=== PATIENT | female | born 1975 | race Caucasian/White ===

== ENCOUNTER 2018-05-28 10:23 | Emergency (ER) | payer BC, MEDICAID ==
--- NOTE | 2018-05-28 13:39 | ED PDOC ---
Arrival/HPI - General Chief Complaint: Lower Extremity Problem/Injury Time Seen by Provider: 05/28/18 10:29 Historian: Patient - History of Present Illness Narrative History of Present Illness (Text): 05/28/18 21:35 42 y/o female with no significant PMH presents to the ED c/o bilateral heel and knee pain x 3 months. Pt states she has had this pain for many years but it has worsened over the last few months. Pain starts in her heels and radiates up her legs, worst with standing for long periods of time. Also c/o associated intermittent numbness to her fingertips bilaterally for the last 6 months. History of surgical fixation of right ankle approx 6 years ago with an unknown surgeon. Has not taken any medication for the pain. Denies injury, fevers, chills, weakness, headache, dizziness, nausea, vomiting, abdominal pain, back pain, saddle anesthesia, bowel/bladder incontinence, or any other associated symptoms. Past Medical History - Cardiac Hx Cardiac Disorders: No - Pulmonary Hx Respiratory Disorders: No - Neurological Hx Neurological Disorder: Yes Other/Comment: PAIN TO FEET, ARMS - HEENT Hx HEENT Disorder: No - Renal Hx Renal Disorder: No - Endocrine/Metabolic Hx Endocrine Disorders: No - Hematological/Oncological Hx Blood Disorders: No - Integumentary Hx Dermatological Disorder: No - Musculoskeletal/Rheumatological Hx Musculoskeletal Disorders: Yes Hx Fractures: Yes - Gastrointestinal Hx Gastrointestinal Disorders: No - Genitourinary/Gynecological Hx Genitourinary Disorders: No - Psychiatric Hx Psychophysiologic Disorder: Yes Hx Depression: Yes Hx Substance Use: No - Surgical History Hx Orthopedic Surgery: Yes - Suicidal Assessment Feels Threatened In Home Enviroment: No Family/Social History - Physician Review Nursing Documentation Reviewed: Yes Family/Social History: No Known Family HX Smoking Status: Heavy Smoker > 10 Cigarettes Daily Hx Alcohol Use: No Hx Substance Use: No Hx Substance Use Treatment: No Allergies/Home Meds Allergies/Adverse Reactions: Allergies No Known Allergies Allergy (Verified 05/28/18 10:54) Review of Systems - Review of Systems Constitutional: Normal. absent: Fatigue, Fevers Eyes: Normal. absent: Vision Changes ENT: Normal. absent: Sore Throat, Sinus Congestion Respiratory: Normal. absent: SOB, Cough Cardiovascular: Normal. absent: Chest Pain Gastrointestinal: Normal. absent: Abdominal Pain, Nausea, Vomiting Genitourinary Female: Normal. absent: Dysuria, Frequency, Vaginal Bleeding, Vaginal Discharge Musculoskeletal: Arthralgias. absent: Back Pain, Neck Pain Skin: Normal. absent: Rash Neurological: Normal. absent: Headache, Dizziness Endocrine: Normal Hemo/Lymphatic: Normal Psychiatric: Normal Physical Exam Vital Signs Reviewed: Yes Vital Signs Temp Pulse Resp BP Pulse Ox 05/28/18 10:54 98.8 F 76 16 122/83 96 Temperature: Afebrile Blood Pressure: Normal Pulse: Regular Respiratory Rate: Normal Appearance: Positive for: Well-Appearing, Non-Toxic, Comfortable Pain Distress: None Mental Status: Positive for: Alert and Oriented X 3 Finger Stick Blood Glucose: 92 - Systems Exam Head: Present: Atraumatic, Normocephalic Pupils: Present: PERRL Extroacular Muscles: Present: EOMI Conjunctiva: Present: Normal Mouth: Present: Moist Mucous Membranes Neck: Present: Normal Range of Motion. No: Meningeal Signs, MIDLINE TENDERNESS, Paraspinal Tenderness Respiratory/Chest: Present: Clear to Auscultation, Good Air Exchange. No: Respiratory Distress, Accessory Muscle Use Cardiovascular: Present: Regular Rate and Rhythm, Normal S1, S2, Peripheal Pulses Present Abdomen: No: Tenderness, Distention, Peritoneal Signs, Rebound, Guarding Back: Present: Normal Inspection. No: CVA Tenderness, Midline Tenderness, Paraspinal Tenderness Upper Extremity: Present: Normal Inspection, Normal ROM, NORMAL PULSES, Neurovascularly Intact, Capillary Refill < 2s. No: Cyanosis, Edema, Swelling, Temperature Abnormalties, Deformity Lower Extremity: Present: Normal Inspection, NORMAL PULSES, Normal ROM, Tenderness (over bilateral heels), Neurovascularly Intact, Capillary Refill < 2 s. No: Edema, Swelling, Deformity, Temperature Abnormalties Neurological: Present: GCS=15, CN II-XII Intact, Speech Normal Skin: Present: Warm, Dry, Normal Color. No: Rashes Psychiatric: Present: Alert, Oriented x 3, Normal Insight, Normal Concentration Medical Decision Making ED Course and Treatment: Initial Plan: * Toradol * Heel Xrays * Knee Xrays * Venous Duplex * Fingerstick 05/28/18 13:39 Prelim duplex read negative for DVT Xrays negative for degenerative disease, fracture, or dislocation Fingerstick wnl Patient reports improved pain with medication Advised PMD and orthopedic followup. Given prescription for pain. Diagnostic testing results and plan of care discussed with patient. Strict instructions given regarding prescription use, importance of followup, and signs/symptoms to return to ER including weakness, chest pain, SOB, or any other new/worsening symptoms. Pt verbalized understanding of discussion. Patient is A&Ox3, ambulating with steady gait, with vital signs stable for discharge. - RAD Interpretation Narrative RAD Interpretations (Text): 05/28/18 21:32 Bilateral Heel XR: FINDINGS: No heel spur is identified. Orthopedic hardware incompletely visualized right ankle. IMPRESSION: No significant or acute findings to account for/ related to the clinical presentation. Bilateral Knee XR: FINDINGS: BONES: Right Knee: Normal. No fracture. Left Knee: Normal. No fracture. JOINTS: Right Knee: Normal. No osteoarthritis. Left knee: Normal. No osteoarthritis. SOFT TISSUES: Right Knee: Normal. Left Knee: Normal. JOINT EFFUSION: Right Knee: None. Left Knee: None. OTHER FINDINGS: None. IMPRESSION: No evidence of acute displaced fracture nor dislocation. No significant degenerative osteoarthritis. Radiology Orders: 05/28/18 11:42 HEEL 2 VIEW BI [RAD] Stat KNEES BILATERAL [RAD] Stat DUPLEX LOWER EXTRM VEIN BILAT [US] Stat Emblem Maker: Radiologist - Medication Orders Current Medication Orders: Discontinued Medications Ketorolac Tromethamine (Toradol) 60 mg IM STAT STA Stop: 05/28/18 11:42 Last Admin: 05/28/18 12:01 Dose: 60 mg MAR Pain Assessment Document 05/28/18 12:01 [facility] (Rec: 05/28/18 12:03 [id number] Pain Reassessment Is this a pain reassessment? No Sleep Is patient sleeping during reassessment? No Presence of Pain Presence of Pain Yes Pain Scale Used Protocol: PSCALES Pain Scale Used Numeric Location Left, Right or Bilateral Bilateral Pain Location Body Site Hip Leg Foot Description Description Constant Intensity of Pain at present 9 Pain Behavior Irritability Facial Grimacing Aggravating Factors ADL's Changing Position Standing Walking IM Administration Charges Document 05/28/18 12:01 [facility] (Rec: 05/28/18 12:03 [id number] Injection Site MAR Injection Site Left Arm Charges for Administration # of IM Administrations 1 Disposition/Present on Arrival - Present on Arrival Any Indicators Present on Arrival: No History of DVT/PE: No History of Uncontrolled Diabetes: No Urinary Catheter: No History of Decub. Ulcer: No History Surgical Site Infection Following: None - Disposition Have Diagnosis and Disposition been Completed?: Yes Diagnosis: Chronic leg pain, Paresthesia Disposition: HOME/ ROUTINE Disposition Time: 14:30 Patient Plan: Discharge Condition: STABLE Discharge Instructions (ExitCare): Heel Pain (Caused by Plantar Fasciitis) (DC), Chronic Knee Pain (DC) Additional Instructions: Ibuprofen every 8 hours as needed for pain Followup with orthopedic doctor within 2 days Followup with primary doctor or clinic within 2 days Return to ER with any new/worsening symptoms Prescriptions: Ibuprofen [Motrin Tab] 600 mg PO Q8H PRN #30 tab PRN Reason: Pain, Moderate (4-7) [place] [facility] [place] [facility] [place] - Follow up with primary [facility] [place] [Outside] - Follow up with primary Montana Perez MD [Staff Provider] - Follow up with primary Najma Viera MD [Medical Doctor] - Follow up with primary Forms: [facility] (Albanian), WORK NOTE
[2018-05-28 14:14] VITALS: BP 120/76; PULSE 89; RESP 18; TEMP 98.2; O2SAT 99
--- NOTE | 2018-05-28 15:13 | RAD ---
Date of service: 05/28/2018 PROCEDURE: Bilateral Knee Radiographs. HISTORY: Bilateral knee pain, evaluate for degenerative change COMPARISON: None. FINDINGS: BONES: Right Knee: Normal. No fracture. Left Knee: Normal. No fracture. JOINTS: Right Knee: Normal. No osteoarthritis. Left knee: Normal. No osteoarthritis. SOFT TISSUES: Right Knee: Normal. Left Knee: Normal. JOINT EFFUSION: Right Knee: None. Left Knee: None. OTHER FINDINGS: None. IMPRESSION: No evidence of acute displaced fracture nor dislocation. No significant degenerative osteoarthritis.
--- NOTE | 2018-05-28 16:57 | RAD ---
Date of service: 05/28/2018 PROCEDURE: Bilateral heels HISTORY: heel pain, evaluate for spur COMPARISON: None TECHNIQUE: Standard protocol for this study/examination. FINDINGS: No heel spur is identified. Orthopedic hardware incompletely visualized right ankle. IMPRESSION: No significant or acute findings to account for/ related to the clinical presentation.
--- NOTE | 2018-05-28 18:45 | US ---
HISTORY: Leg pain and swelling. Evaluate for DVT PHYSICIAN(S): Thang Heaton MD. TECHNIQUE: Duplex sonography and color-flow Doppler with graded compression were used to evaluate the deep venous systems of both lower extremities. FINDINGS: The visualized deep venous systems of both lower extremities are sonographically normal and compressible. Normal wave forms and augmentation are seen. There is no sonographic evidence for deep venous thrombosis in the visualized segments of both lower extremities. IMPRESSION: No sonographic evidence for deep venous thrombosis in the visualized segments of both lower extremities.
== END 2018-05-28 15:34 | disposition home or self-care (01) ==
LOC: ED 10:23
DX: G89.29 Other chronic pain (principal); M25.561 Pain in right knee; M25.562 Pain in left knee; R20.2 Paresthesia of skin; F17.210 Nicotine dependence, cigarettes, uncomplicated
CPT/HCPCS: 73560; 73650; 82948; 93970; 96372; 99283; J1885